=== PATIENT | male | born 1990 | race Asian ===

== ENCOUNTER 2017-02-23 00:27 | Emergency (ER) | payer OTHER ==
[~2017-02-23] VITALS: Ht 170.2 cm; Wt 67.0 kg
[2017-02-23 00:37] VITALS: TEMP 36.9; Ht 170.2 cm; Wt 67.0 kg
[2017-02-23] MEDS ORDERED: PROPARACAINE HCL 0.5% OP SOLN 15 ML BTL OP STA (00:58)
[2017-02-23] MEDS ORDERED: CIPROFLOXACIN HCL 0.3% OP SOLN 2.5 ML BTL OP STA (01:19)
[2017-02-23 01:31] VITALS: BP 115/62; PULSE 88; O2SAT 95
--- NOTE | 2017-02-23 03:51 | EMERGENCY ROOM VISIT NOTE ---
ED Visit Note First contact with patient: 00:49 CHIEF COMPLAINT: Eye pain HISTORY OF PRESENT ILLNESS: This 26 yo patient presents to the emergency department with friend complaining of pain in the right eye for the past day. There has been a constant moderate pain and irritation, redness and tearing in the eye. There is a mild blurring of vision at times and light bothers the eye. The vision has not been decreased over all. The patient does not wear contacts. The patient rates the pain as irritating and 5/10. The patient has not had previous injuries to this eye. Tetanus shot is up to date. REVIEW OF SYSTEMS: A 6 system review of systems was completed with positives and pertinent negatives listed in the HPI. ALLERGIES:none MEDICATIONS:none PMH: none SOCIAL HISTORY: No drug use PHYSICAL EXAM: Vital Signs: Reviewed Nurse's notes, vital signs stable. Visual acuity reviewed from nursing. GENERAL: This is a pleasant male, in no acute distress, but who is uncomfortable from the eye problem. Well-developed well- nourished. EYES: The pupils are equal round and reactive to light and accommodation. EOMs are full and without tenderness. There is discharge of clear tears from the right eye which is injected. There is no foreign body visible under the eyelid even after lid eversion. Funduscopic exam reveals no hemorrhages, papilledema, or other abnormalities. No foreign body was seen embedded in the cornea under slit lamp exam. The cornea was clear and no hyphema was seen. Fluorescein uptake was observed with ultraviolet light significant for a corneal abrasion 6:00. EMERGENCY DEPARTMENT COURSE: I examined the patient. Alcaine 2 drops were placed in the patient's right eye. A slit lamp exam was performed as above. Ciloxan two drops was placed in the patient's right eye. The patient was discharged home in good condition. DIAGNOSIS: Corneal abrasion of the right eye DISCHARGE INSTRUCTIONS AND TREATMENT: as below Current/Historical Medications No Active Prescriptions or Reported Meds Allergies Coded Allergies: No Known Allergies (Unverified , 02/23/17) Vital Signs Date Time Temp Pulse Resp B/P (MAP) Pulse Ox O2 Delivery O2 Flow Rate FiO2 02/23/17 01:31 88 14 115/62 95 02/23/17 00:37 36.9 83 17 108/78 96 Room Air Medications Administered Medications (Trade) Dose Ordered Sig/Estefany Route Start Time Stop Time Status Last Admin Dose Admin Proparacaine HCl (Alcaine 0.5% Oph Soln) 2 drops NOW STAT OP 02/23/17 00:58 02/23/17 00:59 DC 02/23/17 00:58 2 DROPS Ciprofloxacin HCl (Ciprofloxacin 0.3% Op Soln) 2 drops NOW STAT OP 02/23/17 01:19 02/23/17 01:21 DC 02/23/17 01:28 2 DROPS Departure Information Impression Primary Impression: Right corneal abrasion Dispostion Home / Self-Care Condition GOOD Prescriptions No Active Prescriptions or Reported Meds Referrals Luis Carlos Shabazz D.O. Forms WORK / SCHOOL INSTRUCTIONS, HOME CARE DOCUMENTATION FORM, IMPORTANT VISIT INFORMATION Patient Instructions [facility], ED Eye Injury Corneal Abrasion Additional Instructions Ciloxan 2 drops into affected eye every 2 hrs while awake x 2 days then every 4 hrs for 5 days for a total of 7 days. No contacts for 10 days. Do not rub your eyes, and wash hands frequently. Cool compress for discomfort. Avoid irritants like smoke, wind, and sun. Throw out eye cosmetics. Follow up with family doctor or eye doctor if symptoms do not start to improve in 48 hrs or if not resolved in 7 days. Return sooner for any change in vision.
== END 2017-02-23 01:30 | disposition home or self-care (01) ==
LOC: C.EDB 00:28 → C.EDA 01:30
DX: S05.01XA Injury of conjunctiva and corneal abrasion without foreign body, right eye, initial encounter (principal); X58.XXXA Exposure to other specified factors, initial encounter

== ENCOUNTER 2017-11-21 18:43 | Emergency (ER) | payer OTHER ==
[~2017-11-21] VITALS: Ht 170.2 cm; Wt 70.6 kg
[2017-11-21 18:46] VITALS: TEMP 36.7; Ht 170.2 cm; Wt 70.6 kg
[2017-11-21] MEDS ORDERED: PROPARACAINE HCL 0.5% OP SOLN 15 ML BTL ONE (19:24)
[2017-11-21] MEDS ORDERED: HYDR-5688 PO (19:43)
[2017-11-21] MEDS ORDERED: CIPROFLOXACIN HCL 0.3% OP SOLN 2.5 ML BTL OP ONE (19:45)
[2017-11-21] MEDS ORDERED: NORCO 5/325MG HOME PACK PO ONE (19:45)
[2017-11-21 20:15] VITALS: BP 118/74; PULSE 80; O2SAT 96
--- NOTE | 2017-11-22 20:25 | EMERGENCY ROOM VISIT NOTE ---
ED Visit Note First contact with patient: 18:49 Chief Complaint: Left eye pain. History of Present Illness: Mr. Walton is a 27-year-old white male who ambulates into the ED accompanied by female friend complaining of left eye pain. Patient reports he has been having ongoing eye pain for the last 2 days. He reports initially it was mild has gradually increased in intensity. He denies any precipitating injuries, he wears glasses but not contacts lenses. Additionally denies any previous significant eye injuries or diseases. He does report last year he had a corneal abrasion of the right eye from unknown causes. Currently patient is complaining of a burning and light sensitivity to the left eye. He rates his discomfort 5/10. His pain is nonradiating. He has not identified any aggravating or alleviating factors related to the pain. He has not taken any medications for pain prior to arrival at this hospital. Associated with his pain he reports he is having tearing, redness of the sclera and light sensitivity. Additionally patient does report he has been noted by family members to spontaneously just rub his eyes at night while he is sleeping. He denies fevers, chills, sweats, skin eruptions, skin color changes, headache, flashing lights, halos, floaters, nausea/vomiting. Review of Systems: As noted above in history of present illness. Past Medical History: As previously noted. Current Medications: Patient denies. Allergies to Medications: Patient denies. Social History: Patient is currently employed; he feels safe in his home environment; he denies tobacco use and admits to alcohol use. Tetanus Immunization Status: Up-to-date. Physical Examination: Vital Signs: Date Time Temp Pulse Resp B/P (MAP) Pulse Ox O2 Delivery O2 Flow Rate FiO2 11/21/17 20:15 80 118/74 96 11/21/17 18:46 36.7 92 17 119/82 96 Room Air GENERAL: 27-year-old male in mild to moderate distress due to pain, nontoxic- appearing, afebrile and hemodynamically stable. NEUROLOGICAL: Awake, alert and oriented to person, place and time. Answering questions appropriately and following commands. Normal gait. Good hand eye coordination. SKIN: Warm, dry and pink. No soft tissue eruptions or trauma noted. HEENT: Atraumatic and normocephalic. The orbit is not erythematous or edematous. The tissue surrounding the left eye are not tender to palpation. PERRLA. EOMI without nystagmus. Sclera injected on the left but not the right. Conjunctiva is pink with drainage of tears on the left. No foreign bodies noted under the eyelids are embedded in the cornea. The anterior chamber is clear. Visual acuity right: 20/20 with corrective glasses, left 20/ 100 with corrective glasses. On slit-lamp examination with staining patient has a punctated uptake of the staining diffusely over the cornea. This is mild and not disseminated in one area only. ED Course: Patient is assessed as noted above. Patient's medication list was reviewed. Alcaine was used to anesthetize the eye for examination. Patient was educated about today's findings and instructed on his treatment plan ; he verbalizes understanding and agreement with this plan. Clinical Impression: Left corneal punctate keratitis. Disposition: Patient discharged home in stable condition accompanied by his girlfriend; prior to departure he was reassessed and subjectively reported he was feeling better and rated his discomfort 3/10. Plan: Patient was placed on a sliding pain medication scale of ibuprofen, acetaminophen and [place]; his name was checked on state database and no red flags were noted and he was given appropriate narcotic precautions. Patient was prescribed Ciloxan ophthalmic solution encouraged to use 2 drops every 4 hours while awake for 5 days. Patient was encouraged to follow-up with his rougher operator to return the emergency department in 36-48 hours for recheck. Patient was encouraged return to the ED for worsening/uncontrolled pain, fevers , worsening visual changes, headaches, vomiting or any new/concerning symptoms.
== END 2017-11-21 20:15 | disposition home or self-care (01) ==
LOC: C.EDB 18:45 → C.EDD 20:15
DX: H16.142 Punctate keratitis, left eye (principal)

== ENCOUNTER 2017-11-26 12:46 | Emergency (ER) | payer OTHER ==
[~2017-11-26 12:46] MED LIST: HYDR-5688 PO
[2017-11-26 12:59] VITALS: TEMP 36.8
[2017-11-26] MEDS ORDERED: PROPARACAINE HCL 0.5% OP SOLN 15 ML BTL OP STA (13:13)
[2017-11-26 14:06] VITALS: BP 119/68; PULSE 82; O2SAT 99
--- NOTE | 2017-11-26 22:07 | EMERGENCY ROOM VISIT NOTE ---
ED Visit Note First contact with patient: 12:57 Chief Complaint: Left eye pain and vision changes. History of Present Illness: Mr. Walton is a 27-year-old male who ambulates into the ED complaining of left eye pain and vision changes. Historically patient was seen in the emergency department in February 2017 with right eye pain and was found to have a corneal abrasion. Additionally I had seen this patient in the emergency department on November 21, 2017 for similar symptoms. He was found to have a punctated uptake of fluroescein diffusely over the inferior border of the cornea. He was placed on ciprofloxacin antibiotic drops and pain medications. He goes on to report that he was feeling much better for approximately 2.5 days and then his pain started to re- escalate and he started having worsening vision changes. Currently he is complaining of a stinging burning sensation in the left eye. He rates his discomfort 7/10. His pain is nonradiating. His pain worsens with exposure to light. He has not identified any alleviating factors related to the pain. Currently he describes his vision changes as a fog over the entire left eye. He reports he is able to perceive light and movement but cannot see anything else. He denies fevers, chills, sweats, skin eruptions, skin color changes, recent additional trauma to his eye, contact use, flashing lights, drawing curtains, floaters, vomiting, decreased appetite. Review of Systems: As noted above in history of present illness. 8 body systems were reviewed and found to be negative as noted above. Past Medical History: As previously noted. Current Medications: Ciloxan, [place]. Allergies to Medications: Patient denies. Social History: Patient is a university student; he feels safe in his home environment; he denies tobacco and alcohol use. Physical Examination: Vital Signs: Date Time Temp Pulse Resp B/P (MAP) Pulse Ox O2 Delivery O2 Flow Rate FiO2 11/26/17 14:06 82 20 119/68 99 11/26/17 12:59 36.8 86 20 122/77 98 Room Air GENERAL: 27-year-old male in mild distress due to pain, nontoxic-appearing, afebrile and hemodynamically stable. NEUROLOGICAL: Awake, alert and oriented to person, place and time. Answering questions appropriately and following commands. SKIN: Warm, dry and pink. No soft tissue eruptions or trauma noted. HEENT: Atraumatic and normocephalic. PERRLA. EOMI without nystagmus. Sclera significantly injected. Conjunctiva pink without drainage. No foreign bodies were noted under the eyelids are embedded in the cornea. Anterior chamber is clear. On slit-lamp examination is hazy in color but does not uptake of dye. Ocular pressure was 22.3 on the right and 23.0 on the left. Visual acuity: Right 20/40 with correction and he reports he was not able to see the chart at all with his left eye. ED Course: Patient is assessed as noted above. Patient's medication list was reviewed. Alcaine was used to anesthetize the eye for examination. Patient's case was reviewed with Dr. Aldana, manager sales training; he reported that the patient be seen in his office immediately for follow-up care and treatment. Patient was educated about today's findings and instructed on his treatment plan ; he verbalized understanding and agreement with this plan. Clinical Impression: Left eye pain with visual acuities. Disposition: Patient discharged home in stable condition; prior to departure he was reassessed and subjectively reported he was feeling better and rated his discomfort 5/10. Plan: Patient was encouraged to follow-up with Dr. Mejia for 3:15 PM appointment today. Patient was encouraged to return the ED as needed.
== END 2017-11-26 14:09 | disposition home or self-care (01) ==
LOC: C.EDB 12:48 → C.EDD 14:09
DX: H57.12 Ocular pain, left eye (principal); H53.8 Other visual disturbances